=== PATIENT | male | born 1995 | race Caucasian/White ===

== ENCOUNTER 2020-04-27 13:30 | Emergency (ER) | payer OTHER, BC ==
[~2020-04-27] VITALS: Ht 172.7 cm; Wt 109.1 kg
[2020-04-27] MEDS ORDERED: AMOX/K CLAV875 M1 PO (13:40)
[2020-04-27 14:10] VITALS: BP 143/95
== END 2020-04-27 14:10 | disposition home or self-care (01) | DRG 605 ==
LOC: ED 13:30
DX: S60.572A Other superficial bite of hand of left hand, initial encounter (principal); W54.0XXA Bitten by dog, initial encounter; Y93.K1 Activity, walking an animal; Y92.89 Other specified places as the place of occurrence of the external cause; Y99.0 Civilian activity done for income or pay

== ENCOUNTER 2020-09-12 12:45 | Emergency (ER) | payer OTHER ==
[~2020-09-12] VITALS: Ht 172.7 cm; Wt 122.0 kg
[~2020-09-12 12:45] MED LIST: AMOX/K CLAV875 M1 PO
[2020-09-12] MEDS ORDERED: CYCLOBENZAPRINE10 MG PO (14:35)
[2020-09-12] MEDS ORDERED: MEDDOSEPAK PO (14:35)
[2020-09-12 14:38] VITALS: BP 141/83
== END 2020-09-12 14:43 | disposition home or self-care (01) | DRG 552 ==
LOC: ED 12:45
DX: M54.5 Low back pain (principal); X50.0XXA Overexertion from strenuous movement or load, initial encounter

== ENCOUNTER 2021-08-24 16:31 | Emergency (ER) | payer OTHER ==
[~2021-08-24] VITALS: Ht 172.7 cm; Wt 100.0 kg
[~2021-08-24 16:31] MED LIST changes: +CYCLOBENZAPRINE10 MG PO; +MEDDOSEPAK PO
[2021-08-24] MEDS ORDERED: AMOX/K CLAV875 M1 PO (17:14)
[2021-08-24 17:35] VITALS: BP 128/76
== END 2021-08-24 17:35 | disposition home or self-care (01) | DRG 605 ==
LOC: ED 16:31
DX: S61.452A Open bite of left hand, initial encounter (principal); S61.451A Open bite of right hand, initial encounter; W54.0XXA Bitten by dog, initial encounter; Y93.89 Activity, other specified; Y92.410 Unspecified street and highway as the place of occurrence of the external cause; Y99.0 Civilian activity done for income or pay

== ENCOUNTER 2021-09-18 00:47 | Emergency (ER) | payer OTHER ==
[~2021-09-18] VITALS: Ht 170.2 cm; Wt 109.0 kg
[2021-09-18 01:31] LABS: IMMATURE GRANULOCYTES 0.3 % (0.0-5.0); MEAN CORPUSCULAR HGB 29.7 pG CALC (26.0-32.0); MEAN CORPUSCULAR HGB CONC 32.9 g/dL CAL (32.0-36.0); NEUT# 10.21 thou/uL (1.82-7.42); RED BLOOD COUNT 4.99 mill/uL (4.70-6.10); RED CELL DISTRI WIDTH 12.5 % (11.5-15.5)
[2021-09-18 01:34] LABS: HEMOGLOBIN 14.8 g/dl (14.0-18.0); MEAN CELL VOLUME 90.2 fL CALC (80.0-100.0)
[2021-09-18 01:35] LABS: ALBUMIN 4.3 g/dL (3.2-5.0); BILIRUBIN, TOTAL 0.4 mg/dL (0.0-1.4); BUN 16 mg/dL (9-20); BUN/CREATININE RATIO 14 (12-20 (CALC)); CARBON DIOXIDE 26 mmol/l (22-30); CHLORIDE 100 mmol/l (95-108); CREATININE 1.2 mg/dL (0.7-1.3); GFR > 60 ML/MIN (>=60 (CALC)); GFR FOR AFR.AMER. > 60 ML/MIN (>=60 (CALC)); SODIUM 141 mmol/l (137-146); TOTAL PROTEIN 8.3 g/dL (6.3-8.2)
[2021-09-18 01:38] LABS: ALKALINE PHOSPHATASE 74 u/l (38-126); ANION GAP 18 (6-22 (CALC)); POTASSIUM 3.1 mmol/l (3.5-5.1); SGOT/AST 61 u/l (17-59)
[2021-09-18 01:49] LABS: MYOGLOBIN 94 ng/mL (0 - 121)
[2021-09-18 02:05] LABS: URINE BILIRUBIN - DIPSTICK NEGATIVE (NEGATIVE); URINE BLOOD DIPSTICK NEGATIVE (NEGATIVE); URINE COLOR YELLOW; URINE GLUCOSE - DIPSTICK NEGATIVE (NEGATIVE); URINE KETONE NEGATIVE (NEGATIVE); URINE LEUK ESTERASE NEGATIVE (NEGATIVE); URINE PROTEIN - DIPSTICK 30 mg/dL (NEG-TRACE); URINE SPECIFIC GRAVITY >=1.030; URINE UROBILINOGEN - DIPSTICK 0.2 E.U./dL (0.2)
[2021-09-18 02:12] LABS: URINE NITRITE - DIPSTICK NEGATIVE (Negative)
[2021-09-18 02:13] LABS: URINE BACTERIA FEW hpf; URINE EPITHELIAL CELLS FEW EPI/hpf (0-FEW); URINE MUCUS FEW hpf (NONE-FEW)
[2021-09-18] MEDS ORDERED: KEFLEX500 MG PO (04:25)
[2021-09-18] MEDS ORDERED: DIPHENHYDRAM50 M2 PO (04:30)
[2021-09-18] MEDS ORDERED: PEPCID20 MG PO (04:31)
[2021-09-18 04:56] VITALS: BP 119/57
== END 2021-09-18 04:45 | disposition home or self-care (01) | DRG 916 ==
LOC: ED 00:47
PROVIDERS: Emergency Medicine
DX: T78.40XA Allergy, unspecified, initial encounter (principal); N39.0 Urinary tract infection, site not specified; F41.1 Generalized anxiety disorder; E87.6 Hypokalemia; F43.0 Acute stress reaction; F10.10 Alcohol abuse, uncomplicated; X58.XXXA Exposure to other specified factors, initial encounter; Z51.89 Encounter for other specified aftercare

== ENCOUNTER 2021-09-18 19:31 | Emergency (ER) | payer OTHER ==
[~2021-09-18] VITALS: Ht 170.2 cm; Wt 109.1 kg
[~2021-09-18 19:31] MED LIST changes: +DIPHENHYDRAM50 M2 PO; +KEFLEX500 MG PO; +PEPCID20 MG PO
[2021-09-18 20:42] LABS: HEMATOCRIT 41.6 % (39.0-50.0); HEMOGLOBIN 13.4 g/dl (14.0-18.0); IMMATURE GRANULOCYTES 0.1 % (0.0-5.0); MEAN CELL VOLUME 92.7 fL CALC (80.0-100.0); MEAN CORPUSCULAR HGB 29.8 pG CALC (26.0-32.0); MEAN CORPUSCULAR HGB CONC 32.2 g/dL CAL (32.0-36.0); NEUT# 4.92 thou/uL (1.82-7.42); RED BLOOD COUNT 4.49 mill/uL (4.70-6.10); RED CELL DISTRI WIDTH 12.7 % (11.5-15.5)
[2021-09-18 21:01] LABS: ALBUMIN 3.9 g/dL (3.2-5.0); ALKALINE PHOSPHATASE 64 u/l (38-126); ANION GAP 11 (6-22 (CALC)); BILIRUBIN, TOTAL 0.5 mg/dL (0.0-1.4); BUN 10 mg/dL (9-20); BUN/CREATININE RATIO 11 (12-20 (CALC)); CARBON DIOXIDE 27 mmol/l (22-30); CHLORIDE 108 mmol/l (95-108); CREATININE 0.9 mg/dL (0.7-1.3); GFR > 60 ML/MIN (>=60 (CALC)); GFR FOR AFR.AMER. > 60 ML/MIN (>=60 (CALC)); POTASSIUM 3.7 mmol/l (3.5-5.1); SGOT/AST 37 u/l (17-59); SODIUM 143 mmol/l (137-146); TOTAL PROTEIN 7.5 g/dL (6.3-8.2)
[2021-09-18 21:49] VITALS: BP 134/76
== END 2021-09-18 21:52 | disposition home or self-care (01) | DRG 950 ==
LOC: ED 19:31
PROVIDERS: Emergency Medicine
DX: Z51.89 Encounter for other specified aftercare (principal)

== ENCOUNTER 2022-10-02 08:54 | Emergency (ER) | payer OTHER, BC ==
[~2022-10-02] VITALS: Ht 170.2 cm; Wt 104.3 kg
[2022-10-02 09:08] VITALS: BP 135/86
[2022-10-02 09:31] VITALS: BP 127/69
[2022-10-02] MEDS ORDERED: IBUPROFEN600 MG PO (11:53)
[2022-10-02] MEDS ORDERED: TRAMADOL HYDROC50 M1 PO (11:53)
[2022-10-02 12:03] VITALS: BP 127/69
== END 2022-10-02 12:21 | disposition home or self-care (01) | DRG 552 ==
LOC: ED 08:54
DX: M54.50 Low back pain, unspecified (principal)

== ENCOUNTER 2024-03-03 18:14 | Observation (INO) | payer BC ==
[~2024-03-03] VITALS: Ht 170.2 cm; Wt 114.2 kg
[2024-03-03] VITALS (8 sets, daily range): BP systolic 61–155; BP diastolic 40–94
[~2024-03-03 18:14] MED LIST changes: +IBUPROFEN600 MG PO; +TRAMADOL HYDROC50 M1 PO
[2024-03-03] MEDS ORDERED: LACTATED RINGER'S 1,000 ML IV ONE ×3 (18:20→19:50)
[2024-03-03] MEDS ORDERED: diazePAM 10 MG/2 ML VIAL IV ONE (18:25)
[2024-03-03 18:50] LABS: BASO% 0.2 % (0-3); EOS% 0.1 % (0-8); IMMATURE GRANULOCYTES 0.2 % (0.0-5.0); LYMPH% 7.9 % (15-41); MEAN CELL VOLUME 88.5 fL CALC (80.0-100.0); MEAN CORPUSCULAR HGB 30.1 pG CALC (26.0-32.0); MONO% 3.9 % (2-13); NEUT# 15.41 thou/uL (1.82-7.42); NEUT% 87.7 % (42-76); RED BLOOD COUNT 5.39 mill/uL (4.70-6.10); RED CELL DISTRI WIDTH 12.1 % (11.5-15.5)
[2024-03-03 18:52] LABS: HEMATOCRIT 47.7 % (39.0-50.0); HEMOGLOBIN 16.2 g/dl (14.0-18.0)
[2024-03-03 19:03] LABS: BILIRUBIN, TOTAL 0.7 mg/dL (0.2-1.3)
[2024-03-03 19:17] LABS: CREATININE 2.8 mg/dL (0.7-1.3); POTASSIUM 4.5 mmol/l (3.5-5.1)
[2024-03-03 19:18] LABS: ALBUMIN 5.6 g/dL (3.2-5.0); TOTAL PROTEIN 10.8 g/dL (6.3-8.2)
[2024-03-03] MEDS ORDERED: MAGNESIUM HYDROXIDE 30 ML UDC PO PRN (20:00)
[2024-03-03] MEDS ORDERED: ACETAMINOPHEN 325 MG/TAB PO PRN (20:00)
[2024-03-03] MEDS ORDERED: Zaleplon 5 MG/CAP PO PRN (20:00)
[2024-03-03] MEDS ORDERED: CYCLOBENZAPRINE HCL 5 MG TAB PO PRN (20:00)
[2024-03-03] MEDS ORDERED: SODIUM CHLORIDE 0.9% 1,000 ML IV SCH (20:00)
[2024-03-03 20:12] LABS: URINE BLOOD DIPSTICK Negative (NEGATIVE); URINE GLUCOSE - DIPSTICK Negative (NEGATIVE); URINE KETONE 15 mg/dL (NEGATIVE); URINE LEUK ESTERASE Negative (NEGATIVE); URINE NITRITE - DIPSTICK Negative (Negative); URINE PH 5.5 (4.5-8.0); URINE PROTEIN - DIPSTICK 100 mg/dL (NEG-TRACE); URINE SPECIFIC GRAVITY 1.025; URINE UROBILINOGEN - DIPSTICK 0.2 E.U./dL (0.2)
[2024-03-03 20:28] LABS: URINE COLOR Dark yellow
[2024-03-03 20:29] LABS: URINE AMORPH SEDIMENT FEW hpf (NONE-FER); URINE CALCIUM OXALATE CRYSTALS FEW lpf; URINE RBC 0-2 RBC/hpf (0-5)
[2024-03-04 03:35] VITALS: BP 109/53
[2024-03-04 04:00] VITALS: BP 109/53
[2024-03-04 06:44] LABS: BASO% 0.3 % (0-3); EOS% 1.8 % (0-8); IMMATURE GRANULOCYTES 0.2 % (0.0-5.0); LYMPH% 32.6 % (15-41); MEAN CELL VOLUME 90.3 fL CALC (80.0-100.0); MEAN CORPUSCULAR HGB 30.6 pG CALC (26.0-32.0); MEAN CORPUSCULAR HGB CONC 33.9 g/dL CAL (32.0-36.0); MONO% 7.7 % (2-13); NEUT# 7.18 thou/uL (1.82-7.42); NEUT% 57.4 % (42-76); RED BLOOD COUNT 4.31 mill/uL (4.70-6.10); RED CELL DISTRI WIDTH 12.4 % (11.5-15.5)
[2024-03-04 06:57] LABS: HEMATOCRIT 38.9 % (39.0-50.0); HEMOGLOBIN 13.2 g/dl (14.0-18.0)
[2024-03-04 06:58] VITALS: BP 98/40
[2024-03-04 07:03] LABS: BILIRUBIN, TOTAL 0.6 mg/dL (0.2-1.3); MAGNESIUM 2.2 mg/dL (1.6-2.3)
[2024-03-04 07:11] LABS: ALBUMIN 4.3 g/dL (3.2-5.0); CREATININE 1.2 mg/dL (0.7-1.3); TOTAL PROTEIN 7.7 g/dL (6.3-8.2)
== END 2024-03-04 11:29 | disposition home or self-care (01) | DRG 684 ==
LOC: ED 18:14 → ED-I 19:22 → MS2 20:07 → ED 20:07 → MS2 20:07
PROVIDERS: Nurse Practitioner; Nurse Practitioner Family; ADMIT Student in an Organized Health Care Education/Training Program; ATTEND Student in an Organized Health Care Education/Training Program
DX: N17.9 Acute kidney failure, unspecified (principal); E86.0 Dehydration; X30.XXXA Exposure to excessive natural heat, initial encounter; Y92.73 Farm field as the place of occurrence of the external cause; Y99.0 Civilian activity done for income or pay
CPT/HCPCS: G0378